=== PATIENT | male | born 1970 | race Caucasian/White ===

== ENCOUNTER 2016-11-14 14:37 | Emergency (ER) | payer OTHER ==
[2008-05-15 20:55] VITALS: BP 145/76
[~2016-11-14] VITALS: Ht 167.6 cm; Wt 79.5 kg
[~2016-11-14 14:37] MED LIST: ADVIL200 MG PO; AMOXICILLIN 50500 MG PO; AMOXICILLIN875 MG PO; AUGMENTIN 500 M1 TAB PO; BACTRIM DS 8001 TAB PO; CEFTIN 250250 MG/TAB PO; CEPHALEXIN500 M1 PO; CIPRO 250MG TA250 MG PO; CIPRO 500MG TA500 MG PO; DARVOCET-N-101 UDTAB PO; FLEXERIL 1010 MG/TAB PO; FLEXERIL10 MG PO; FLOMAX0.4 MG PO; IBU800 M1 PO; IBUPROFEN200 M2 PO; LORTAB 5/500 501 TAB PO; NAPROSYN500 MG PO; NO HOME MEDICATIONS; NORCO 325 MG-51 TAB; NORCO 325 MG-51 TAB PO; NORCO 325 MG-7.1 TAB PO; PEPCID AC20 MG PO; PERCOCET 5/321 UDTAB PO; PERCOCET 500 MG1 TAB PO; PREDNISONE20 MG PO; PRILOTC; PRILOTC PO; PROMETHAZINE12.5 M5 PO; RAPAFLO4 MG PO; TUMS500 MG; ZITHROMAX 250M250 MG PO; [UNRECOGNIZED DRUG - REMARK] PO
[2016-11-14 14:42] VITALS: BP 138/88; PULSE 95; TEMP 99.4
[2016-11-14] MEDS ORDERED: CLEOCIN HCL300 MG PO (15:11)
== END 2016-11-14 16:33 | disposition short-term general hospital (02) ==
LOC: COL.ER 14:37
DX: K04.7 Periapical abscess without sinus (principal)

== ENCOUNTER 2018-04-15 18:08 | Emergency (ER) | payer SELFPAY ==
[2008-05-15 20:55] VITALS: BP 145/76
[~2018-04-15] VITALS: Ht 167.6 cm; Wt 79.5 kg
[~2018-04-15 18:08] MED LIST changes: +CLEOCIN HCL300 MG PO
[2018-04-15 18:18] VITALS: BP 125/74; TEMP 98.9
[2018-04-15 18:27] LABS: COLLECTION METHOD CLEAN CATCH
[2018-04-15 19:02] LABS: PH 6 (5-8); SQUAMOUS EPITHELIAL None Seen /hpf; URINE APPEARANCE Cloudy; URINE BACTERIA Moderate /hpf; URINE BILIRUBIN Negative (NEGATIVE); URINE BLOOD 2+ (NEGATIVE); URINE COLOR Amber; URINE GLUCOSE Negative (NEGATIVE); URINE KETONE Negative (NEGATIVE); URINE LEUKOCYTE ESTERASE 2+ (NEGATIVE); URINE NITRATE Negative (NEGATIVE); URINE PROTEIN(semi-quant) 2+ (NEGATIVE); URINE RBC >50 /hpf; URINE UROBILINOGEN Negative (NEGATIVE)
[2018-04-15 20:05] LABS: BASO % 0.4 % (0.0-2.0); EOS # 0.3 (0.0-0.7); GRAN # 3.5 (1.4-6.5); GRAN % 50.5 % (42.2-75.2); HEMATOCRIT 41.2 % (42.0-52.0); HEMOGLOBIN 14.5 g/dl (13.5-18.0); LYMPH # 2.6 (1.2-3.4); LYMPH % 37.1 % (20.0-51.0); MEAN CELL VOLUME 91 fl (80.0-100.0); MEAN CORPUSCULAR HEMOGLOBIN 32 pg (27.0-31.0); MEAN CORPUSCULAR HGB CONC 35 g/dl (33.0-37.0); MEAN PLATELET VOLUME 9.2 fl (7.4-10.4); MONO # 0.5 (0.1-0.6); MONO % 7.7 % (1.7-9.3); PLATELET COUNT 187 K/mm3 (130-400); RED BLOOD COUNT 4.54 M/mm3 (4.20-5.60); REDCELL DISTRIBUTION WIDTH-CV 13.3 % (11.5-14.5)
[2018-04-15 20:14] LABS: ALBUMIN 3.8 gm/dL (3.5-5.0); BILIRUBIN,TOTAL 0.6 mg/dL (0.0-1.0); CALCIUM 8.9 mg/dL (8.4-10.2); CREATININE, serum 0.7 mg/dL (0.66-1.25); POTASSIUM 3.5 mmol/L (3.4-5.0); TOTAL PROTEIN 7.1 gm/dL (6.4-8.2)
[2018-04-15] MEDS ORDERED: CEFTIN500 MG PO (20:18)
[2018-04-15 20:55] VITALS: PULSE 80
== END 2018-04-15 20:56 | disposition home or self-care (01) ==
LOC: COL.ER 18:08
PROVIDERS: Emergency Medicine; Physician Assistant
DX: R31.9 Hematuria, unspecified (principal); R80.9 Proteinuria, unspecified

== ENCOUNTER 2019-02-02 15:56 | Emergency (ER) | payer SELFPAY ==
[2008-05-15 20:55] VITALS: BP 145/76
[~2019-02-02] VITALS: Ht 167.6 cm; Wt 77.3 kg
[~2019-02-02 15:56] MED LIST changes: +CEFTIN500 MG PO
[2019-02-02 16:05] VITALS: TEMP 99.1
[2019-02-02] MEDS ORDERED: PHENERGAN 25 TA25 MG PO (16:21)
[2019-02-02 16:43] LABS: BASO % 0.2 % (0.0-2.0); EOS % 0.2 % (0-4.0); GRAN # 7.6 (1.4-6.5); GRAN % 89.9 % (42.2-75.2); HEMATOCRIT 49.8 % (42.0-52.0); HEMOGLOBIN 16.7 g/dl (13.5-18.0); LYMPH # 0.5 (1.2-3.4); LYMPH % 5.9 % (20.0-51.0); MEAN CELL VOLUME 93 fl (80.0-100.0); MEAN CORPUSCULAR HEMOGLOBIN 31 pg (27.0-31.0); MEAN CORPUSCULAR HGB CONC 34 g/dl (33.0-37.0); MEAN PLATELET VOLUME 9.5 fl (7.4-10.4); MONO # 0.3 (0.1-0.6); MONO % 3.3 % (1.7-9.3); PLATELET COUNT 216 K/mm3 (130-400); RED BLOOD COUNT 5.35 M/mm3 (4.20-5.60); REDCELL DISTRIBUTION WIDTH-CV 13.5 % (11.5-14.5)
[2019-02-02 16:55] LABS: ALBUMIN 4.6 gm/dL (3.5-5.0); BILIRUBIN,TOTAL 0.9 mg/dL (0.0-1.0); CALCIUM 9.5 mg/dL (8.4-10.2); CREATININE, serum 0.83 (0.66-1.25); POTASSIUM 4.6 mmol/L (3.4-5.0); TOTAL PROTEIN 8.1 gm/dL (6.4-8.2)
[2019-02-02 17:12] LABS: COLLECTION METHOD CLEAN CATCH
[2019-02-02 17:27] LABS: MUCOUS Present /lpf; PH 6 (5-8); SQUAMOUS EPITHELIAL None Seen /hpf; URINE APPEARANCE Cloudy; URINE BACTERIA None Seen /hpf; URINE BILIRUBIN Negative (NEGATIVE); URINE BLOOD 3+ (NEGATIVE); URINE COLOR Yellow; URINE GLUCOSE Negative (NEGATIVE); URINE KETONE Negative (NEGATIVE); URINE LEUKOCYTE ESTERASE 3+ (NEGATIVE); URINE NITRATE Negative (NEGATIVE); URINE PROTEIN(semi-quant) 1+ (NEGATIVE); URINE RBC >50 /hpf; URINE UROBILINOGEN Negative (NEGATIVE)
[2019-02-02 17:58] VITALS: BP 134/81; PULSE 94
== END 2019-02-02 18:00 | disposition home or self-care (01) ==
LOC: COL.ER 15:56
PROVIDERS: Emergency Medicine
DX: K52.9 Noninfective gastroenteritis and colitis, unspecified (principal)
CPT/HCPCS: J0780; J2405; J7030

== ENCOUNTER 2021-08-23 14:20 | Observation (INO) | payer OTHER ==
[~2021-08-23] VITALS: Ht 17.8 cm; Wt 82.5 kg
[~2021-08-23 14:20] MED LIST changes: +PHENERGAN 25 TA25 MG PO
[2021-08-23 15:06] LABS: COLLECTION METHOD CLEAN CATCH
[2021-08-23 15:20] LABS: MUCOUS Present /lpf; PH 8 (5-8); URINE APPEARANCE Cloudy; URINE BACTERIA Moderate /hpf; URINE BILIRUBIN Negative (NEGATIVE); URINE BLOOD Negative (NEGATIVE); URINE COLOR Yellow; URINE GLUCOSE Negative (NEGATIVE); URINE KETONE Trace (NEGATIVE); URINE LEUKOCYTE ESTERASE 3+ (NEGATIVE); URINE NITRATE Negative (NEGATIVE); URINE PROTEIN(semi-quant) 1+ (NEGATIVE); URINE UROBILINOGEN Negative (NEGATIVE)
[2021-08-23 15:49] LABS: BASO % 0.2 % (0.0-2.0); EOS % 0.1 % (0-4.0); GRAN # 9.5 K/mm3 (1.4-6.5); HEMATOCRIT 49.1 % (42.0-52.0); HEMOGLOBIN 17.1 g/dl (13.5-18.0); LYMPH # 1.4 K/mm3 (1.2-3.4); LYMPH % 12.2 % (20.0-51.0); MEAN CELL VOLUME 90 fl (80.0-100.0); MEAN CORPUSCULAR HEMOGLOBIN 31 pg (27.0-31.0); MEAN CORPUSCULAR HGB CONC 35 g/dl (33.0-37.0); MEAN PLATELET VOLUME 9.8 fl (7.4-10.4); MONO # 0.7 K/mm3 (0.1-0.6); MONO % 6.2 % (1.7-9.3); PLATELET COUNT 217 K/mm3 (130-400); RED BLOOD COUNT 5.45 M/mm3 (4.20-5.60); REDCELL DISTRIBUTION WIDTH-CV 13.1 % (11.5-14.5)
[2021-08-23 16:06] LABS: ALANINE AMINOTRANSFERASE 29 U/L (0-55); ALBUMIN 4.2 gm/dL (3.5-5.0); ALKALINE PHOSPHATASE 76 U/L (0-750); ANION GAP 10 mmol/L (7-16); AST,SGOT 18 U/L (5-34); BILIRUBIN,TOTAL 1.5 mg/dL (0.2-1.2); BLOOD UREA NITROGEN 14 mg/dL (8-26); CALCIUM 9.6 mg/dL (8.4-10.2); CARBON DIOXIDE 24 mmol/L (22-29); CHLORIDE 103 mmol/L (98-107); CREATININE, serum 0.85 mg/dL (0.72-1.25); GLUCOSE 120 mg/dL (70-99); LIPASE < 10 U/L (8-78); POTASSIUM 4.2 mmol/L (3.5-4.5); SODIUM 137 mmol/L (136-145); TOTAL PROTEIN 7.5 gm/dL (6.2-8.1)
--- NOTE | 2021-08-23 19:50 | NUR ---
PT ARRIVES TO ROOM VIA W/C WITH COMPLAINT OF RLQ ABD PAIN. HAS SL TO LEFT AC. REPORTS PAIN 07/19
--- NOTE | 2021-08-23 20:15 | NUR ---
DR LARIOS NOTIFIED OF PATIENTS DESIRE FOR SOMETHING TO EAT AND DIFFERENT PAIN MED. NEW ORDERS RECEIVED.
[2021-08-23 20:31] VITALS: BP 137/87; PULSE 99; TEMP 99.9
--- NOTE | 2021-08-23 20:31 | NUR ---
PT REPORTS PAIN 9/10 TO RLQ. MEDICATED WITH DILAUDID 0.5MG IVP AT THIS TIME. IVF INFUSING TO LEFT AC WITHOUT REDNESS OR SWELLING.
[2021-08-24] VITALS (12 sets, daily range): BP systolic 86–154; BP diastolic 49–77; PULSE 56–103; TEMP 97.6–99.3
--- NOTE | 2021-08-24 06:00 | NUR ---
PT REPORTS PAIN TO RLQ IS "TOLERABLE". HAS BEEN NPO SINCE MIDNIGHT. IVF TO LEFT AC INFUSING WITHOUT REDNESS OR SWELLING.
--- NOTE | 2021-08-24 06:30 | NUR ---
Patient is in bed resting comfortably. Call light and bedside table are within reach. Will continue to monitor patient throughout shift.
--- NOTE | 2021-08-24 15:24 | NUR ---
Spoke to Dr. Ovalle in reference to the patient being in AFIB. He instructed this nurse to watch and wait. This nurse will continue to monitor patient throughout shift.
--- NOTE | 2021-08-24 16:27 | NUR ---
Plans to return to [facility] with Amanda as support and Angie [phone] with [facility] bed. Patient reports that PCP is Dr. Rajani Sargent and [facility] is where they obtain medications. Apoor[facility] Mother Es . Denies using any other DME and will trasport home. Educated on services and supports. Nf.
--- NOTE | 2021-08-24 19:13 | NUR ---
PT REPORTS PAIN TO LLQ, ENCOURAGED AMBULATION IN HALLWAY. REPORTS PASSING GAS. MEDICATED WITH NORCO 1 TAB PO AT THIS TIME. PT IN HALLWAY WALKING INDEPENDENTLY. SL TO LEFT AC. TAKING ORAL FLUIDS WITHOUT N/V. ABD LAP SITES X5.
[2021-08-25 00:21] VITALS: BP 90/50; PULSE 81; TEMP 98.7
--- NOTE | 2021-08-25 00:45 | NUR ---
RATES PAIN TO ABD 6/10, NORCO 1 PO AT THIS TIME.
[2021-08-25 03:15] VITALS: BP 105/74; PULSE 83; TEMP 98.7
--- NOTE | 2021-08-25 06:00 | NUR ---
MEDICATED WITH NORCO 1 TAB PO FOR ABD PAIN.
--- NOTE | 2021-08-25 06:30 | NUR ---
Report received from MARK ANTHONY Galicia. Pt in bed resting, doing well, denies needs, will continue to monitor.
[2021-08-25] MEDS ORDERED: NORCO 325 MG-51 TAB PO (07:41)
[2021-08-25 08:00] VITALS: BP 95/63; PULSE 78; TEMP 98.9
--- NOTE | 2021-08-25 09:00 | NUR ---
Assessment charted. Pt doing well, anticpating dishcarge today, lap sites well approximated. INT to LFA. Will continue to monitor.
--- NOTE | 2021-08-25 11:40 | NUR ---
Discharge teaching completed at this time. Pt received discharge packet, reviewed f/u restrictions for bathing and lfiting/pulling/pushing. atbedside. INT dc'd, tip intact. Pt left via ambulation with all belongings, packet delivered, escorted out by myself and , to drive home, criteria met.
== END 2021-08-25 11:20 | disposition home or self-care (01) ==
LOC: COL.ER 14:20 → SURG 17:29
PROVIDERS: Family Medicine; Personal Emergency Response Attendant; ADMIT Surgery
DX: K35.891 Other acute appendicitis without perforation, with gangrene (principal); K66.0 Peritoneal adhesions (postprocedural) (postinfection); Z87.891 Personal history of nicotine dependence
CPT/HCPCS: G0378; J1170; J2270; J2405; J2543; J2704; J3010; J7030; J7120; Q9967

== ENCOUNTER 2021-10-06 11:19 | Emergency (ER) | payer OTHER ==
[~2021-10-06] VITALS: Ht 170.2 cm; Wt 88.6 kg
[2021-10-06 13:20] VITALS: BP 138/95; PULSE 72; TEMP 98.1
== END 2021-10-06 13:35 | disposition home or self-care (01) ==
LOC: COL.ER 11:19
DX: J06.9 Acute upper respiratory infection, unspecified (principal); Z20.822 Contact with and (suspected) exposure to COVID-19

== ENCOUNTER 2023-10-16 21:48 | Emergency (ER) | payer BC ==
[~2023-10-16] VITALS: Ht 167.6 cm; Wt 79.5 kg
[~2023-10-16 21:48] MED LIST changes: +MOTRIN 800800 MG/TAB PO; +PROAIR HFA0.09 MG/AC IH; +ZITHROMAX Z PA250 MG PO
[2023-10-16 21:55] VITALS: TEMP 98.2
[2023-10-17] LABS: CREATININE, serum 0.65 mg/dL (0.72-1.25); POTASSIUM 3.7 mmol/L (3.5-4.5)
[2023-10-17 00:55] VITALS: BP 113/74; PULSE 75
== END 2023-10-17 00:55 | disposition home or self-care (01) ==
LOC: COL.ER 21:48
PROVIDERS: Emergency Medicine
DX: T83.098A Other mechanical complication of other urinary catheter, initial encounter (principal)